=== PATIENT | male | born 2000 | race Caucasian/White ===

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

== ENCOUNTER 2020-02-14 00:39 | Emergency (ER) | payer OTHER | END 2020-02-14 02:44 | disposition left against medical advice (07) | LOC: ER 00:39 | DX: Z53.29 Procedure and treatment not carried out because of patient's decision for other reasons (principal); R11.10 Vomiting, unspecified ==